=== PATIENT | female | born 2005 | race Caucasian/White ===

== ENCOUNTER 2025-03-03 08:44 | Outpatient (AMB) | payer MEDICAID, SELFPAY ==
[2025-03-03 08:56] VITALS: BP 112/78; PULSE 87; RESP 16; TEMP 36.2; O2SAT 98
--- NOTE | 2025-03-03 08:56 | OBCLNT_ITS ---
Vital Signs 03/03/25 08:56 Weight 76.714 kg Weight Measurement Method Standing Scale BP 112/78 Blood Pressure Source Automatic Cuff Blood Pressure Location Left Upper Arm Position Sitting Respiration 16 Pulse 87 Pulse Source Monitor Temp 97.2 F Temp Source Oral Pulse Oximetry (%) 98 Oxygen Delivery Method Room Air Allergies/Home Meds Allergies & Medications Allergies No Known Allergies Allergy (Unknown, Uncoded 03/03/25 08:57) Medication Reconciliation No Known Home Medications 03/03/25 [History Confirmed 03/03/25] Intake Visit Data Collection New Patient or Established: New Patient (never been to [facility]) Reason for Visit:: OB TRANSFER Seen by Clinical Staff ONLY (RN/MA): No Advertising Sales Executive Required: No Do You Feel Safe at Home: Yes Authorities Contacted: N/A PCP or OBGYN visit in last 3 months: Yes Hx Now: Yes Are you currently on any form of Control: No Last menstrual period: 07/07/24 Pain Present Currently: No Pain Scale Used: Armando-Covington/Numerical Pain scale:: 0 Smoking Status Smoking Status: Never smoker Questionnaires Covid-19 Vaccine Questionnaire Has patient been vacinated for Covid-19 Have you been vacinated for Covid-19: Yes PHQ-9 PHQ-2 Over the last 2 weeks, how often have you been bothered by any of the following problems? 1. Little interest or pleasure in doing things: not at all 2. Feeling down, depressed, or hopeless: not at all Total score: 0 PHQ-9 3. Trouble falling or staying asleep, or sleeping too much: Not at all 4. Feeling tired or having little energy: Not at all 5. Poor appetite or overeating: Not at all 6. Feeling bad about yourself - or that you are a failure or have let yourself or your family down: Not at all 7. Trouble concentrating on things, such as reading the newspaper or watching television: Not at all 8. Moving or speaking so slowly that other people could have noticed? - Or the opposite - being so fidgety or restless that you have been moving around a lot more than usual: not at all 9. Thoughts that you would be better off or of hurting yourself in some way: Not at all Total score: 0 If you checked off any problems, how difficult have these problems made it for you to do your work, take care of things at home, or get along with other people?: not difficult at all Source: Developed by Drs. Stephen Malloy, Lala Horn, Anthony Rowland and colleagues, with an educational rashad from [employer]. Depression screen completed yes Social History Living Situation History Marital Status: Single Lives With: Family Housing: House Tobacco History Smoking Status: Never smoker Domestic Abuse History Do You Feel Safe at Home: Yes History of Present Illness HPI Narrative 20-year-old 1 para 0 for OBI. Patient is a transfer from Dr. Garza with records. She has not had any problems with the . Her last. Was July 11 2024. This gave due date April 17, 2025. Patient had poor dates. The first ultrasound at [facility] was January 28, 2025. Patient was 25 weeks 4 days and this changes EDC to May 09, 2025. Patient reports good movement. Denies contractions. Denies bleeding. Denies leaking. Patient denies existence of any existing medical problems. She denies social habits. Denies surgeries. Patient is O+, antibody screen negative, RPR nonreactive, rubella immune, hepatitis B negative, hep C negative, HIV negative, GC and Chlamydia were negative. She had a normal 1 hour. Her NIPT and carrier screens were all negative. Her hemoglobin was 36. Patient January ultrasound showed the baby growing in the 40s 1st percentile OB Initial Visit OB Flowsheet OB Flowsheet Initial Weight: Not Recorded Date -?-?-?-?-?-?-?-?-?-?-?-?- EGA Weight BP Alb Glu CTX Pres Fundal ht FHR Mov Dilation Station Effacement Hx Notes Visit Note 03/03/25 -?-?-?-?-?-?-?-?-?-?-?-?- 30w 3d 76.714 kg 112/78 absent cephalic 33 145 active 20-year-old 1 para 0 for OBI. She has records. Transfer from Dr. Garza's office.'s patient has wrong dates. Her last period was July 11, 2024. Her estimated due date based on that April 17, 2025. Patient's first ultrasound January 28, 2025. Baby was 25 weeks 4 and this changed her EDC till 05/09/2025. Reports movement. Denies leaking. Denies bleeding. Denies contractions. Discussed labor precautions. Discussed kick count. Increase fluids. Continue prenatals. Reviewed labs and dates with patient. Return in a week for OB check and GBS Menstrual History Menstrual reliability: definite Flow: normal Menstrual regularity: regular Monthly: Yes Age at menarche: 13 On control pills at conception: No OB History : 1 Para: 0 Hx # Pregnancies: 0 Hx Total # of Abortions (Spontaneous & Elective): 0 # of Living Children: 0 Infection History & Risk Evaluation History of STDs: none HIV risk evaluation: low risk Hepatitis B risk evaluation: low risk Patient or partner has history of Genital Herpes: No Varicella/chicken pox status: immunized Genetic Screening & History Genetic Screening/Teratology Counseling - Includes patient, baby's father, or anyone in either family with: 1. Patient's age 35 years or older as of estimated date of delivery: No 2. Thalassemia (Kazakh, Amharic, Mediterranean, or Background); MCV less than 80: No 3. Neural Tube Defect (Meningomyelocele, Spina Bifida, or Anencephaly): No 4. Congenital Heart Defect: No 5. Down Syndrome: No 6. Ignacio-Sachs (Ashkenazi Gnosticist, Cajun, Hebrew South Korean): No 7. Royal Disease (Ashkenazi Gnosticist): No 8. Familial Dysautonomia (Ashkenazi Gnosticist): No 9. Sickle Cell Disease or Trait (): No 10. Hemophilia or other blood disorders: No 11. Muscular Dystrophy: No 12. Cystic Fibrosis: No 13. [place]'s Chorea: No 14. Mental Retardation/Autism: No 15. Other inherited genetic or chromosomal disorder: No 16. Maternal Metabolic Disorder (EG,TYPE 1 Diabetes, PKU): No 17. Patient or baby's father had a child with defects not listed above: No 18. Recurrent loss or a stillbirth: No 19. Medications (including supplements, vitamins, herbs or otc drugs)/illicit/recreational drugs/alcohol since last menstrual period: No 20. Any other: No Infection History 1. Live with someone with TB or exposed to TB: No 2. Rash or viral illness since last menstrual period: No 3. Hepatitis B,C: No Other (see comments) Source: [employer] Review of Systems Review of Systems Systems Reviewed: All systems reviewed, normal except as documented Exam General Limitations: no limitations General Appearance: alert, in no apparent distress, comfortable, cooperative, healthy appearing, well developed and well groomed Head Head exam: atraumatic, normocephalic and normal inspection Chest Chest inspection: Present normal inspection and symmetric chest wall rise Resp Respiratory exam: Present normal lung sounds bilaterally Card Cardiovascular exam: Present regular rate, normal rhythm and normal heart sounds Abdominal Abdominal exam: Present soft and normal bowel sounds Extremities Extremities exam: Present normal inspection and full ROM Psych Psychiatric exam: Present normal affect and normal mood Office Procedures OB Clinic LOC & Office Proc's Nursing/Assessment Patient Status: Initial/New Patient OB Clinic Nursing Assessment: Medication Reconciliation, Update PMH in EMR and Vital Signs OB Clinic Coordination of Care: Education Complex Pt/Fam, Consent,records obtained, informed consent, Lab and Imaging orders, Results/Orders obtained and Staff clarify orders Special Needs: Heart tones New Patient Charge New Patient Point Assignment: 1114 New Patient 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 Kick counts twice a day. Increase fluids. Continue prenatals. Return in 2 weeks GBS Additional Plan Follow Up: 2 Weeks (obc)
== END 2025-03-03 09:31 | disposition home or self-care (01) ==
LOC: HODSOBC 08:44
PROVIDERS: Supervising Provider Advanced Practice Midwife; Visit Provider Advanced Practice Midwife
DX: Z34.03 Encounter for supervision of normal first pregnancy, third trimester (principal); Z3A.30 30 weeks gestation of pregnancy
CPT/HCPCS: 99203; 99213; G0463

== ENCOUNTER 2025-03-09 13:32 | Outpatient (AMB) | payer MEDICAID, SELFPAY ==
[2025-03-09 14:02] VITALS: BP 107/68; PULSE 91; RESP 16; TEMP 36.2; O2SAT 98
--- NOTE | 2025-03-09 14:02 | AMB.OBVISIT ---
Vital Signs 03/09/25 14:02 Weight 76.43 kg Weight Measurement Method Standing Scale BP 107/68 Blood Pressure Source Automatic Cuff Blood Pressure Location Left Upper Arm Position Sitting Respiration 16 Pulse 91 Pulse Source Monitor Temp 97.2 F Temp Source Oral Pulse Oximetry (%) 98 Oxygen Delivery Method Room Air Allergies/Home Meds Allergies & Medications Allergies No Known Allergies Allergy (Unknown, Uncoded 03/09/25 14:03) Medication Reconciliation No Known Home Medications 03/03/25 [History Confirmed 03/09/25] Intake Visit Data Collection New Patient or Established: Established Patient (seen at [facility] within 3 years) Reason for Visit:: OBC Seen by Clinical Staff ONLY (RN/MA): No Air Conditioning Technician Required: No Do You Feel Safe at Home: Yes Authorities Contacted: N/A PCP or OBGYN visit in last 3 months: Yes Date of Last PCP or OBGYN visit: 03/03/25 Hx Now: Yes Are you currently on any form of Control: No Pain Present Currently: No Pain Scale Used: Armando-Covington/Numerical Pain scale:: 0 Smoking Status Smoking Status: Never smoker Questionnaires Covid-19 Vaccine Questionnaire Has patient been vacinated for Covid-19 Have you been vacinated for Covid-19: No PHQ-9 PHQ-2 Over the last 2 weeks, how often have you been bothered by any of the following problems? 1. Little interest or pleasure in doing things: not at all 2. Feeling down, depressed, or hopeless: not at all Total score: 0 PHQ-9 3. Trouble falling or staying asleep, or sleeping too much: Not at all 4. Feeling tired or having little energy: Not at all 5. Poor appetite or overeating: Not at all 6. Feeling bad about yourself - or that you are a failure or have let yourself or your family down: Not at all 7. Trouble concentrating on things, such as reading the newspaper or watching television: Not at all 8. Moving or speaking so slowly that other people could have noticed? - Or the opposite - being so fidgety or restless that you have been moving around a lot more than usual: not at all 9. Thoughts that you would be better off or of hurting yourself in some way: Not at all Total score: 0 If you checked off any problems, how difficult have these problems made it for you to do your work, take care of things at home, or get along with other people?: not difficult at all Source: Developed by Drs. Stephen Malloy, Lala Horn, Anthony Rowland and colleagues, with an educational rashad from [employer]. Depression screen completed yes Social History Living Situation History Lives With: Family Housing: House Tobacco History Smoking Status: Never smoker Second Hand Smoke Exposure: No Alcohol History Alcohol Intake: Never Domestic Abuse History Do You Feel Safe at Home: Yes Care OB Visit Log OB Flowsheet Initial Weight: Not Recorded Date <del>?</del> EGA Weight BP Alb Glu CTX Pres Fundal ht FHR Mov Dilation Station Effacement Hx Notes Visit Note 03/03/25 <del>?</del> 30w 3d 76.714 kg 112/78 absent cephalic 33 145 active 20-year-old 1 para 0 for OBI. She has records. Transfer from Dr. Garza's office.'s patient has wrong dates. Her last period was July 11, 2024. Her estimated due date based on that April 17, 2025. Patient's first ultrasound January 28, 2025. Baby was 25 weeks 4 and this changed her EDC till 05/09/2025. Reports movement. Denies leaking. Denies bleeding. Denies contractions. Discussed labor precautions. Discussed kick count. Increase fluids. Continue prenatals. Reviewed labs and dates with patient. Return in a week for OB check and GBS 03/09/25 <del>?</del> 31w 2d 76.43 kg 107/68 absent cephalic 32 145 active Reports good movement. Occasional contractions and pressure. Denies leaking, denies bleeding. Patient denies any OB problem Kick count twice a day. I discussed with patient. I discussed danger signs and symptoms and ER precautions. Increase fluids. Continue prenatals. Return in 2 weeks for recheck DIOR Calculator Estimated Delivery Date Method Current WG Current Estimate 05/09/25 Ultrasound #1 31w 2d Other Estimates 04/17/25 LMP (Uncertain) 34w 3d Notes Visit Date: 03/03/25 Last Updated by: Mitzy Barahona CNM 20 yo . EDC based on first sono 01/28/25: IUP: 25w4. CEDC: 05/09/25. O+,abs-, RPR:NR, HIV-,HC-,HBSAG-,GC/CT-, NIPT and carrier screen-, [place]-, 1 hr gtt: wnl Office Procedures OB Clinic LOC & Office Proc's Nursing/Assessment Patient Status: Established Patient OB Clinic Nursing Assessment: Medication Reconciliation, Update PMH in EMR and Vital Signs OB Clinic Coordination of Care: Education Complex Pt/Fam, Consent,records obtained, informed consent, Lab and Imaging orders and Staff clarify orders Special Needs: Heart tones Established Patient Charge Established Patient Point Assignment: 110 Established Patient Point Charge: EP Level 3 (80-115) Assessment & Plan Diagnosis / Problem List (1) Encounter for supervision of other normal , second trimester: Status: Acute Plan Discussed return precautions. Kick count twice a day. Increase fluids. Discussed danger signs and symptoms and ER precautions. Return in 2 weeks OB check Additional Plan Follow Up: 2 Weeks (obc)
== END 2025-03-09 14:11 | disposition home or self-care (01) ==
PROVIDERS: Supervising Provider Advanced Practice Midwife; Visit Provider Advanced Practice Midwife
DX: Z34.03 Encounter for supervision of normal first pregnancy, third trimester (principal); Z3A.31 31 weeks gestation of pregnancy
CPT/HCPCS: 99213; G0463

== ENCOUNTER 2025-03-23 15:00 | Outpatient (AMB) | payer MEDICAID, SELFPAY ==
[2025-03-23 16:12] VITALS: BP 110/72; PULSE 91; RESP 18; TEMP 36.6; O2SAT 98
--- NOTE | 2025-03-23 16:12 | OBCLNT_ITS ---
Vital Signs 03/23/25 16:12 Height 5.1 m Height Method Measured Weight 78.642 kg Weight Measurement Method Standing Scale BMI 3.0 BP 110/72 Blood Pressure Source Automatic Cuff Blood Pressure Location Left Upper Arm Position Sitting Respiration 18 Pulse 91 Pulse Source Monitor Temp 97.8 F Temp Source Oral Pulse Oximetry (%) 98 Oxygen Delivery Method Room Air Allergies/Home Meds Allergies & Medications Allergies No Known Allergies Allergy (Unknown, Uncoded 03/23/25 16:13) Medication Reconciliation No Known Home Medications 03/03/25 [History Confirmed 03/23/25] Intake Visit Data Collection New Patient or Established: Established Patient (seen at [facility] within 3 years) Reason for Visit:: CARE Seen by Clinical Staff ONLY (RN/MA): No Council On Aging Director Required: No Do You Feel Safe at Home: Yes Authorities Contacted: N/A PCP or OBGYN visit in last 3 months: Yes Hx Now: Yes Are you currently on any form of Control: No Pain Present Currently: No Pain Scale Used: Armando-Covington/Numerical Pain scale:: 0 Smoking Status Smoking Status: Never smoker Questionnaires Covid-19 Vaccine Questionnaire Has patient been vacinated for Covid-19 Have you been vacinated for Covid-19: Yes PHQ-9 PHQ-2 Over the last 2 weeks, how often have you been bothered by any of the following problems? 1. Little interest or pleasure in doing things: not at all 2. Feeling down, depressed, or hopeless: not at all Total score: 0 PHQ-9 3. Trouble falling or staying asleep, or sleeping too much: Not at all 4. Feeling tired or having little energy: Not at all 5. Poor appetite or overeating: Not at all 6. Feeling bad about yourself - or that you are a failure or have let yourself or your family down: Not at all 7. Trouble concentrating on things, such as reading the newspaper or watching television: Not at all 8. Moving or speaking so slowly that other people could have noticed? - Or the opposite - being so fidgety or restless that you have been moving around a lot more than usual: not at all 9. Thoughts that you would be better off or of hurting yourself in some way: Not at all Total score: 0 Source: Developed by Drs. Stephen Malloy, Lala Horn, Anthony Rowland and colleagues, with an educational rashad from [employer]. Depression screen completed yes Social History Living Situation History Lives With: Family Housing: House Tobacco History Smoking Status: Never smoker Second Hand Smoke Exposure: No Alcohol History Alcohol Intake: Never Domestic Abuse History Do You Feel Safe at Home: Yes Care OB Visit Log OB Flowsheet Initial Weight: Not Recorded Date -?-?-?-?-?-?-?-?-?-?-?-?- EGA Weight BP Alb Glu CTX Pres Fundal ht FHR Mov Dilation Station Effacement Hx Notes Visit Note 03/03/25 -?-?-?-?-?-?-?-?-?-?-?-?- 30w 3d 76.714 kg 112/78 absent cephalic 33 145 active 20-year-old 1 para 0 for OBI. She has records. Transfer from Dr. Garza's office.'s patient has wrong dates. Her last period was July 11, 2024. Her estimated due date based on that April 17, 2025. Patient's first ultrasound January 28, 2025. Baby was 25 weeks 4 and this changed her EDC till 05/09/2025. Reports movement. Denies leaking. Denies bleeding. Denies contractions. Discussed labor precautions. Discussed kick count. Increase fluids. Continue prenatals. Reviewed labs and dates with patient. Return in a week for OB check and GBS 03/09/25 -?-?-?-?-?-?-?-?-?-?-?-?- 31w 2d 76.43 kg 107/68 absent cephalic 32 145 active Reports good movement. Occasional contractions and pressure. Denies leaking, denies bleeding. Patient denies any OB problem Kick count twice a day. I discussed with patient. I discussed danger signs and symptoms and ER precautions. Increase fluids. Continue prenatals. Return in 2 weeks for recheck 03/23/25 -?-?-?-?-?-?-?-?-?-?-?-?- 33w 2d 78.642 kg 110/72 absent cephalic 33 135 active Fetus active per patient. Denies labor complaints. Denies leaking, bleeding, contractions. Reviewed kick co unt twice a day. Discussed labor precautions. Encourage patient to drink more fluids. Return in 2 weeks OB check and GBS DIOR Calculator Estimated Delivery Date Method Current WG Current Estimate 05/09/25 Ultrasound #1 33w 2d Other Estimates 04/17/25 LMP (Uncertain) 36w 3d Notes Visit Date: 03/03/25 Last Updated by: Mitzy Barahona CNM 20 yo . EDC based on first sono 01/28/25: IUP: 25w4. CEDC: 05/09/25. O+,abs-, RPR:NR, HIV-,HC-,HBSAG-,GC/CT-, NIPT and carrier screen-, [place]-, 1 hr gtt: wnl Office Procedures OB Clinic LOC & Office Proc's Nursing/Assessment Patient Status: Established Patient OB Clinic Nursing Assessment: Medication Reconciliation, Update PMH in EMR and Vital Signs OB Clinic Coordination of Care: Complex Care and Chronic Disease 1-5, Consent,records obtained, informed consent, Education Simp Pt/Fam, 1 Ins Authorization, Lab and Imaging orders, Results/Orders obtained and Staff clarify orders Special Needs: Heart tones Established Patient Charge Established Patient Point Assignment: 150 Established Patient Point Charge: EP Level 4 (120-155) Assessment & Plan Diagnosis / Problem List (1) Encounter for care in third trimester of first : Status: Acute Plan Discussed labor precautions. Kick count twice a day and I reviewed that with patient. Discussed danger signs symptoms and ER precautions. Return in 2 weeks for OB check and GBS Additional Plan Follow Up: 2 Weeks (OBc)
== END 2025-03-23 16:34 | disposition home or self-care (01) ==
LOC: HODSOBC 15:00
PROVIDERS: Supervising Provider Advanced Practice Midwife; Visit Provider Advanced Practice Midwife
DX: Z34.03 Encounter for supervision of normal first pregnancy, third trimester (principal); Z3A.33 33 weeks gestation of pregnancy
CPT/HCPCS: 99214; G0463

== ENCOUNTER 2025-04-11 14:13 | Outpatient (AMB) | payer MEDICAID, SELFPAY ==
[2025-04-11 14:38] VITALS: BP 105/65; PULSE 87; RESP 16; TEMP 36.3; O2SAT 97; BMI 32.3
--- NOTE | 2025-04-11 14:38 | AMB.OBVISIT ---
Vital Signs 04/11/25 14:38 Height 1.57 m Height Method Stated Weight 80.059 kg Weight Measurement Method Standing Scale BMI 32.3 BP 105/65 Blood Pressure Source Automatic Cuff Blood Pressure Location Left Upper Arm Position Sitting Respiration 16 Pulse 87 Pulse Source Monitor Temp 97.3 F Temp Source Oral Pulse Oximetry (%) 97 Oxygen Delivery Method Room Air Allergies/Home Meds Allergies & Medications Allergies No Known Allergies Allergy (Unknown, Uncoded 04/11/25 14:40) Medication Reconciliation No Known Home Medications 03/03/25 [History Confirmed 04/11/25] Intake Visit Data Collection New Patient or Established: Established Patient (seen at [facility] within 3 years) Reason for Visit:: CARE Seen by Clinical Staff ONLY (RN/MA): No Expanded Function Dental Assistant Required: No Do You Feel Safe at Home: Yes Authorities Contacted: N/A PCP or OBGYN visit in last 3 months: Yes Hx Now: Yes Are you currently on any form of Control: No Pain Present Currently: No Pain Scale Used: Armando-[place]/Numerical Pain scale:: 0 Smoking Status Smoking Status: Never smoker Questionnaires Covid-19 Vaccine Questionnaire Has patient been vacinated for Covid-19 Have you been vacinated for Covid-19: No PHQ-9 PHQ-2 Over the last 2 weeks, how often have you been bothered by any of the following problems? 1. Little interest or pleasure in doing things: not at all 2. Feeling down, depressed, or hopeless: not at all Total score: 0 PHQ-9 3. Trouble falling or staying asleep, or sleeping too much: Not at all 4. Feeling tired or having little energy: Not at all 5. Poor appetite or overeating: Not at all 6. Feeling bad about yourself - or that you are a failure or have let yourself or your family down: Not at all 7. Trouble concentrating on things, such as reading the newspaper or watching television: Not at all 8. Moving or speaking so slowly that other people could have noticed? - Or the opposite - being so fidgety or restless that you have been moving around a lot more than usual: not at all 9. Thoughts that you would be better off or of hurting yourself in some way: Not at all Total score: 0 Source: Developed by Drs. Stephen Malloy, Lala Horn, Anthony Rowland and colleagues, with an educational rashad from [email or web address]. Depression screen completed yes Social History Living Situation History Lives With: Family Housing: House Tobacco History Smoking Status: Never smoker Second Hand Smoke Exposure: No Alcohol History Alcohol Intake: Never Domestic Abuse History Do You Feel Safe at Home: Yes Care OB Visit Log OB Flowsheet Initial Weight: Not Recorded Date <del>?</del> EGA Weight BP Alb Glu CTX Pres Fundal ht FHR Mov Dilation Station Effacement Hx Notes Visit Note 03/03/25 <del>?</del> 30w 3d 76.714 kg 112/78 absent cephalic 33 145 active 20-year-old 1 para 0 for OBI. She has records. Transfer from Dr. Garza's office.'s patient has wrong dates. Her last period was July 11, 2024. Her estimated due date based on that April 17, 2025. Patient's first ultrasound January 28, 2025. Baby was 25 weeks 4 and this changed her EDC till 05/09/2025. Reports movement. Denies leaking. Denies bleeding. Denies contractions. Discussed labor precautions. Discussed kick count. Increase fluids. Continue prenatals. Reviewed labs and dates with patient. Return in a week for OB check and GBS 03/09/25 <del>?</del> 31w 2d 76.43 kg 107/68 absent cephalic 32 145 active Reports good movement. Occasional contractions and pressure. Denies leaking, denies bleeding. Patient denies any OB problem Kick count twice a day. I discussed with patient. I discussed danger signs and symptoms and ER precautions. Increase fluids. Continue prenatals. Return in 2 weeks for recheck 03/23/25 <del>?</del> 33w 2d 78.642 kg 110/72 absent cephalic 33 135 active Fetus active per patient. Denies labor complaints. Denies leaking, bleeding, contractions. Reviewed kick count twice a day. Discussed labor precautions. Encourage patient to drink more fluids. Return in 2 weeks OB check and GBS 04/11/25 <del>?</del> 36w 0d 80.059 kg 105/65 absent cephalic 36 132 active Fetus active. Denies leaking, bleeding, contractions. Feels pressure. No OB complaints GBS today. Reviewed kick count with patient to be done twice a day. Discussed labor precautions, ER precautions and danger signs symptoms return a week OB check DIOR Calculator Estimated Delivery Date Method Current WG Current Estimate 05/09/25 Ultrasound #1 36w 0d Other Estimates 04/17/25 LMP (Uncertain) 39w 1d Notes Visit Date: 03/03/25 Last Updated by: Mitzy Barahona, MICHELLE 20 yo . EDC based on first sono 01/28/25: IUP: 25w4. CEDC: 05/09/25. O+,abs-, RPR:NR, HIV-,HC-,HBSAG-,GC/CT-, NIPT and carrier screen-, [place]-, 1 hr gtt: wnl Office Procedures OBC Clinic LOC & Office Proc's Nursing/Assessment Patient Status: Established Patient OB Clinic Nursing Assessment: Medication Reconciliation, Update PMH in EMR and Vital Signs OB Clinic Coordination of Care: Complex Care and Chronic Disease 1-5, Consent,records obtained, informed consent, Education Simp Pt/Fam, Lab and Imaging orders, Results/Orders obtained and Staff clarify orders Special Needs: Heart tones Miscellaneous Interventions: Culture Specimen Collection and Pelvic Culture Established Patient Charge Established Patient Point Assignment: 160 Established Patient Point Charge: EP Level 5 (160-above) Assessment & Plan Diagnosis / Problem List (1) Encounter for supervision of high risk in third trimester, antepartum: Status: Acute Plan GBS today. Discussed labor precautions. Discussed kick count twice a day. Increase fluids. Discussed danger signs and symptoms and ER precautions. Return a week OB check Additional Plan Follow Up: 1 Week (obc)
== END 2025-04-11 15:06 | disposition home or self-care (01) ==
LOC: HODSOBC 14:13
PROVIDERS: Supervising Provider Advanced Practice Midwife; Visit Provider Advanced Practice Midwife
DX: O09.93 Supervision of high risk pregnancy, unspecified, third trimester (principal); Z3A.36 36 weeks gestation of pregnancy; Z36.85 Encounter for antenatal screening for Streptococcus B
CPT/HCPCS: 99215; G0463

== ENCOUNTER 2025-04-20 13:57 | Outpatient (AMB) | payer MEDICAID, SELFPAY ==
[2025-04-20 14:04] VITALS: BP 103/68; PULSE 79; RESP 17; TEMP 36.3; O2SAT 97; BMI 33.0
--- NOTE | 2025-04-20 14:04 | OBCLNT_ITS ---
Vital Signs 04/20/25 14:04 Height 1.57 m Height Method Stated Weight 81.42 kg Weight Measurement Method Standing Scale BMI 33.0 BP 103/68 Blood Pressure Source Automatic Cuff Blood Pressure Location Right Upper Arm Position Sitting Respiration 17 Pulse 79 Pulse Source Monitor Temp 97.3 F Temp Source Temporal Artery Scan Pulse Oximetry (%) 97 Oxygen Delivery Method Room Air Allergies/Home Meds Allergies & Medications Allergies No Known Allergies Allergy (Unknown, Uncoded 04/20/25 14:07) Medication Reconciliation No Known Home Medications 03/03/25 [History Confirmed 04/20/25] Intake Visit Data Collection New Patient or Established: Established Patient (seen at [facility] within 3 years) Reason for Visit:: OBC Seen by Clinical Staff ONLY (RN/MA): No Grain Unloader Required: No Do You Feel Safe at Home: Yes Authorities Contacted: N/A PCP or OBGYN visit in last 3 months: Yes Date of Last PCP or OBGYN visit: 04/11/25 Hx Now: Yes Are you currently on any form of Control: No Pain Present Currently: No Smoking Status Smoking Status: Never smoker Questionnaires Covid-19 Vaccine Questionnaire Has patient been vacinated for Covid-19 Have you been vacinated for Covid-19: No PHQ-9 PHQ-2 Over the last 2 weeks, how often have you been bothered by any of the following problems? 1. Little interest or pleasure in doing things: not at all 2. Feeling down, depressed, or hopeless: not at all Total score: 0 PHQ-9 3. Trouble falling or staying asleep, or sleeping too much: Not at all 4. Feeling tired or having little energy: Not at all 5. Poor appetite or overeating: Not at all 6. Feeling bad about yourself - or that you are a failure or have let yourself or your family down: Not at all 7. Trouble concentrating on things, such as reading the newspaper or watching television: Not at all 8. Moving or speaking so slowly that other people could have noticed? - Or the opposite - being so fidgety or restless that you have been moving around a lot more than usual: not at all 9. Thoughts that you would be better off or of hurting yourself in some way: Not at all Total score: 0 If you checked off any problems, how difficult have these problems made it for you to do your work, take care of things at home, or get along with other people?: not difficult at all Source: Developed by Drs. Stephen Malloy, Lala Horn, Anthony Rowland and colleagues, with an educational rashad from [employer] Depression screen completed yes Social History Living Situation History Marital Status: Lives With: Family Housing: House Tobacco History Smoking Status: Never smoker Second Hand Smoke Exposure: No Alcohol History Alcohol Intake: Never Domestic Abuse History Do You Feel Safe at Home: Yes Care OB Visit Log OB Flowsheet Initial Weight: Not Recorded Date -?-?-?-?-?-?-?-?-?-?--?-?- EGA Weight BP Alb Glu CTX Pres Fundal ht FHR Mov Dilation Station Effacement Hx Notes Visit Note 03/03/25 -?-?-?-?-?-?-?-?-?-?-?-?- 30w 3d 76.714 kg 112/78 absent cephalic 33 145 active 20-year-old 1 para 0 for OBI. She has records. Transfer from Dr. Garza's office.'s patient has wrong dates. Her last period was July 11, 2024. Her estimated due date based on that April 17, 2025. Patient's first ultrasound January 28, 2025. Baby was 25 weeks 4 and this changed her EDC till 05/09/2025. Reports movement. Denies leaking. Denies bleeding. Denies contractions. Discussed labor precautions. Discussed kick count. Increase fluids. Continue prenatals. Reviewed labs and dates with patient. Return in a week for OB check and GBS 03/09/25 -?-?-?-?-?-?-?-?-?-?-?-?- 31w 2d 76.43 kg 107/68 absent cephalic 32 145 active Reports good movement. Occasional contractions and pressure. Denies leaking, denies bleeding. Patient denies any OB problem Kick count twice a day. I discussed with patient. I discussed danger signs and symptoms and ER precautions. Increase fluids. Continue prenatals. Return in 2 weeks for recheck 03/23/25 -?-?-?-?-?-?-?-?-?-?-?-?- 33w 2d 78.642 kg 110/72 absent cephalic 33 135 active Fetus active per patient. Denies labor complaints. Denies leaking, bleeding, contractions. Reviewed kick co unt twice a day. Discussed labor precautions. Encourage patient to drink more fluids. Return in 2 weeks OB check and GBS 04/11/25 -?-?-?-?-?-?-?-?-?-?-?-?- 36w 0d 80.059 kg 105/65 absent cephalic 36 132 active Fetus active. Denies leaking, bleeding, contractions. Feels pressure. No OB complaints GBS today. Reviewed kick count with patient to be done twice a day. Discussed labor precautions, ER precautions and danger signs symptoms return a week OB check 04/20/25 -?-?-?-?-?-?-?-?-?-?-?-?- 37w 2d 81.42 kg 103/68 absent cephalic 37 135 active Reports good movement. Denies leaking, bleeding or contractions Discussed GBS results. Kick count twice a day. Discussed labor precautions and ER precautions. Patient to walk in drink red raspberry tea and other measures to help cause contractions. And return [facility] DIOR Calculator Estimated Delivery Date Method Current WG Current Estimate 05/09/25 Ultrasound #1 37w 2d Other Estimates 04/17/25 LMP (Uncertain) 40w 3d Notes Visit Date: 04/20/25 Last Updated by: Mitzy Barahona CNM 04/19: GBS- Visit Date: 03/03/25 Last Updated by: Mitzy Barahona CNM 20 yo . EDC based on first sono 01/28/25: IUP: 25w4. CEDC: 05/09/25. O+,abs-, RPR:NR, HIV-,HC-,HBSAG-,GC/CT-, NIPT and carrier screen-, [place]-, 1 hr gtt: wnl Office Procedures OBC Clinic LOC & Office Proc's Nursing/Assessment Patient Status: Established Patient OB Clinic Nursing Assessment: Medication Reconciliation, Update PMH in EMR and Vital Signs OB Clinic Coordination of Care: Complex Care and Chronic Disease 1-5, Education Complex Pt/Fam, Consent,records obtained, informed consent and Staff clarify orders Special Needs: Heart tones Established Patient Charge Established Patient Point Assignment: 120 Established Patient Point Charge: EP Level 4 (120-155) Assessment & Plan Diagnosis / Problem List (1) Encounter for supervision of high risk in third trimester, antepartum: Status: Acute Plan Discussed kick count twice a day. Discussed labor precautions and ER parameters. Increase fluids. Continue vitamins. Discussed danger signs symptoms. Return in a week OB check Additional Plan Follow Up: 1 Week (obc)
== END 2025-04-20 14:17 | disposition home or self-care (01) ==
LOC: HODSOBC 13:57
PROVIDERS: Supervising Provider Advanced Practice Midwife; Visit Provider Advanced Practice Midwife
DX: O09.93 Supervision of high risk pregnancy, unspecified, third trimester (principal); Z3A.37 37 weeks gestation of pregnancy
CPT/HCPCS: 99214; G0463

== ENCOUNTER 2025-05-02 13:33 | Outpatient (AMB) | payer MEDICAID, SELFPAY ==
--- NOTE | 2025-05-02 14:00 | OBCLNT_ITS ---
Vital Signs 05/02/25 14:01 Height 1.57 m Height Method Stated Weight 82.781 kg Weight Measurement Method Standing Scale BMI 33.5 BP 97/58 L Blood Pressure Source Automatic Cuff Blood Pressure Location Right Upper Arm Position Sitting Respiration 18 Pulse 82 Pulse Source Monitor Temp 97.5 F Temp Source Temporal Artery Scan Pulse Oximetry (%) 97 Oxygen Delivery Method Room Air Allergies/Home Meds Allergies & Medications Allergies No Known Allergies Allergy (Unknown, Uncoded 05/02/25 14:02) Medication Reconciliation No Known Home Medications 03/03/25 [History Confirmed 05/02/25] Intake Visit Data Collection New Patient or Established: Established Patient (seen at [facility] within 3 years) Reason for Visit:: OBC Seen by Clinical Staff ONLY (RN/MA): No Truck Car And Bus Cleaner Required: No Do You Feel Safe at Home: Yes Authorities Contacted: N/A PCP or OBGYN visit in last 3 months: Yes Date of Last PCP or OBGYN visit: 04/20/25 Hx Now: Yes Are you currently on any form of Control: No Pain Present Currently: No Pain Scale Used: Armando-[place]/Numerical Pain scale:: 0 Smoking Status Smoking Status: Never smoker Immunizations Flu Vaccine in the Last 12 Months: No Flu Vaccine Exclusion Criteria: No Exclusion Criteria Questionnaires Covid-19 Vaccine Questionnaire Has patient been vacinated for Covid-19 Have you been vacinated for Covid-19: No PHQ-9 PHQ-2 Over the last 2 weeks, how often have you been bothered by any of the following problems? 1. Little interest or pleasure in doing things: not at all 2. Feeling down, depressed, or hopeless: not at all Total score: 0 PHQ-9 3. Trouble falling or staying asleep, or sleeping too much: Not at all 4. Feeling tired or having little energy: Not at all 5. Poor appetite or overeating: Not at all 6. Feeling bad about yourself - or that you are a failure or have let yourself or your family down: Not at all 7. Trouble concentrating on things, such as reading the newspaper or watching television: Not at all 8. Moving or speaking so slowly that other people could have noticed? - Or the opposite - being so fidgety or restless that you have been moving around a lot more than usual: not at all 9. Thoughts that you would be better off or of hurting yourself in some way: Not at all Total score: 0 If you checked off any problems, how difficult have these problems made it for you to do your work, take care of things at home, or get along with other people?: not difficult at all Source: Developed by Drs. Stephen Malloy, Lala Horn, Anthony Rowland and colleagues, with an educational rashad from [employer]. Depression screen completed yes Social History Living Situation History Marital Status: Lives With: Family Housing: House Tobacco History Smoking Status: Never smoker Second Hand Smoke Exposure: No Alcohol History Alcohol Intake: Never Domestic Abuse History Do You Feel Safe at Home: Yes Care OB Visit Log OB Flowsheet Initial Weight: Not Recorded Date -?-?-?-?-?-?-?-?-?-?-?-?- EGA Weight BP Alb Glu CTX Pres Fundal ht FHR Mov Dilation Station Effacement Hx Notes Visit Note 03/03/25 -?-?-?-?-?-?-?-?-?-?-?-?- 30w 3d 76.714 kg 112/78 absent cephalic 33 145 active 20-year-old 1 para 0 for OBI. She has records. Transfer from Dr. Garza's office.'s patient has wrong dates. Her last period was July 11, 2024. Her estimated due date based on that April 17, 2025. Patient's first ultrasound January 28, 2025. Baby was 25 weeks 4 and this changed her EDC till 05/09/2025. Reports movement. Denies leaking. Denies bleeding. Denies contractions. Discussed labor precautions. Discussed kick count. Increase fluids. Continue prenatals. Reviewed labs and dates with patient. Return in a week for OB check and GBS 03/09/25 -?-?-?-?-?-?-?-?-?-?-?-?- 31w 2d 76.43 kg 107/68 absent cephalic 32 145 active Reports good movement. Occasional contractions and pressure. Denies leaking, denies bleeding. Patient denies any OB problem Kick count twice a day. I discussed with patient. I discussed danger signs and symptoms and ER precautions. Increase fluids. Continue prenatals. Return in 2 weeks for recheck 03/23/25 -?-?-?-?-?-?-?-?-?-?-?--?- 33w 2d 78.642 kg 110/72 absent cephalic 33 135 active Fetus active per patient. Denies labor complaints. Denies leaking, bleeding, cont ractions. Reviewed kick co unt twice a day. Discussed labor precautions. Encourage patient to drink more fluids. Return in 2 weeks OB check and GBS 04/11/25 -?-?-?-?-?-?-?-?-?-?-?-?- 36w 0d 80.059 kg 105/65 absent cephalic 36 132 active Fetus active. Denies leaking, bleeding, contractions. Feels pressure. No OB complaints GBS today. Reviewed kick count with patient to be done twice a day. Discussed labor precautions, ER precautions and danger signs symptoms return a week OB check 04/20/25 -?-?-?-?-?-?-?-?-?--?-?-?- 37w 2d 81.42 kg 103/68 absent cephalic 37 135 active Reports good movement. Denies leaking, bleeding or contractions Discussed GBS results. Kick count twice a day. Discussed labor precautions and ER precautions. Patient to walk in drink red raspberry tea and other measures to help cause contractions. And return [facility] 05/02/25 -?-?-?-?-?-?-?-?-?-?-?-?- 39w 0d 82.781 kg 97/58 absent cephalic 39 135 active 1 -4 25 Reports good movement. SVE, L/TH/high. Occasional contraction and pressure. Denies leaking or Discussed labor precautions. Kick count twice a day. I discussed comfort measures for early labor and I encouraged patient to walk and move more and return in a week OB check. We also discussed diet decreasing sugary foods Discussed labor precautions. Kick count twice a day. I discussed comfort measures for early labor and I encouraged patient to walk and move more and return in a week OB check. We also discussed diet decreasing sugary foods. IOL 05/12/25 DIOR Calculator Estimated Delivery Date Method Current WG Current Estimate 05/09/25 Ultrasound #1 39w 0d Other Estimates 04/17/25 LMP (Uncertain) 42w 1d Notes Visit Date: 04/20/25 Last Updated by: Mitzy Barahona CNM 04/19: GBS- Visit Date: 03/03/25 Last Updated by: Mitzy Barahona CNM 20 yo . EDC based on first sono 01/28/25: IUP: 25w4. CEDC: 05/09/25. O+,abs-, RPR:NR, HIV-,HC-,HBSAG-,GC/CT-, NIPT and carrier screen-, [place]-, 1 hr gtt: wnl Office Procedures OBC Clinic LOC & Office Proc's Nursing/Assessment Patient Status: Established Patient OB Clinic Nursing Assessment: Medication Reconciliation, Update PMH in EMR and Vital Signs OB Clinic Coordination of Care: Complex Care and Chronic Disease 1-5, Education Complex Pt/Fam, Consent,records obtained, informed consent, Lab and Imaging orders, Results/Orders obtained and Staff clarify orders Special Needs: Heart tones Miscellaneous Interventions: Pelvic no cultures Established Patient Charge Established Patient Point Assignment: 150 Established Patient Point Charge: EP Level 4 (120-155) Assessment & Plan Diagnosis / Problem List (1) Encounter for supervision of high risk in third trimester, antepartum: Status: Acute Plan Discussed labor precautions. Discussed signs symptoms ER precautions discussed kick count twice a day. Patient encouraged to walk 40 minutes a day. We discussed self-help measures to get contractions going. Return in a week Additional Plan Follow Up: 1 Week (obc)
[2025-05-02 14:01] VITALS: BP 97/58; PULSE 82; RESP 18; TEMP 36.4; O2SAT 97; BMI 33.5
== END 2025-05-02 15:02 | disposition home or self-care (01) ==
PROVIDERS: Supervising Provider Advanced Practice Midwife; Visit Provider Advanced Practice Midwife
DX: O09.893 Supervision of other high risk pregnancies, third trimester (principal); Z3A.39 39 weeks gestation of pregnancy
CPT/HCPCS: 99214; G0463

== ENCOUNTER 2025-05-11 13:11 | Outpatient (AMB) | payer MEDICAID, SELFPAY ==
--- NOTE | 2025-05-11 13:13 | OBCLNT_ITS ---
Vital Signs 05/11/25 13:14 Height 1.57 m Height Method Stated Weight 81.873 kg Weight Measurement Method Standing Scale BMI 33.2 BP 115/78 Blood Pressure Source Automatic Cuff Blood Pressure Location Left Upper Arm Position Sitting Respiration 16 Pulse 76 Pulse Source Monitor Temp 97.8 F Temp Source Oral Pulse Oximetry (%) 96 Oxygen Delivery Method Room Air Allergies/Home Meds Allergies & Medications Allergies No Known Allergies Allergy (Unknown, Uncoded 05/11/25 13:19) Medication Reconciliation No Known Home Medications 03/03/25 [History Confirmed 05/11/25] Intake Visit Data Collection New Patient or Established: Established Patient (seen at [facility] within 3 years) Reason for Visit:: CARE Seen by Clinical Staff ONLY (RN/MA): No Radial Drill Press Set Up Operator Required: No Do You Feel Safe at Home: Yes Authorities Contacted: N/A PCP or OBGYN visit in last 3 months: Yes Hx Now: Yes Are you currently on any form of Control: No Pain Present Currently: No Pain Scale Used: Armando-[place]ovington/Numerical Pain scale:: 0 Smoking Status Smoking Status: Never smoker Immunizations Flu Vaccine in the Last 12 Months: Yes Flu Vaccine Exclusion Criteria: Already Received Questionnaires Covid-19 Vaccine Questionnaire Has patient been vacinated for Covid-19 Have you been vacinated for Covid-19: Yes PHQ-9 PHQ-2 Over the last 2 weeks, how often have you been bothered by any of the following problems? 1. Little interest or pleasure in doing things: not at all 2. Feeling down, depressed, or hopeless: not at all Total score: 0 PHQ-9 3. Trouble falling or staying asleep, or sleeping too much: Not at all 4. Feeling tired or having little energy: Not at all 5. Poor appetite or overeating: Not at all 6. Feeling bad about yourself - or that you are a failure or have let yourself or your family down: Not at all 7. Trouble concentrating on things, such as reading the newspaper or watching television: Not at all 8. Moving or speaking so slowly that other people could have noticed? - Or the opposite - being so fidgety or restless that you have been moving around a lot more than usual: not at all 9. Thoughts that you would be better off or of hurting yourself in some way: Not at all Total score: 0 Source: Developed by Drs. Stephen Malloy, Lala Horn, Anthony Rowland and colleagues, with an educational rashad from [employer]. Depression screen completed yes Social History Living Situation History Lives With: Family Housing: House Tobacco History Smoking Status: Never smoker Second Hand Smoke Exposure: No Alcohol History Alcohol Intake: Never Domestic Abuse History Do You Feel Safe at Home: Yes Care OB Visit Log OB Flowsheet Initial Weight: Not Recorded Date -?-?-?-?-?-?-?-?-?-?-?-?- EGA Weight BP Alb Glu CTX Pres Fundal ht FHR Mov Dilation Station Effacement Hx Notes Visit Note 03/03/25 -?-?-?-?-?-?-?-?-?-?-?-?- 30w 3d 76.714 kg 112/78 absent cephalic 33 145 active 20-year-old 1 para 0 for OBI. She has records. Transfer from Dr. Garza's office.'s patient has wrong dates. Her last period was July 11, 2024. Her estimated due date based on that April 17, 2025. Patient's first ultrasound January 28, 2025. Baby was 25 weeks 4 and this changed her EDC till 05/09/2025. Reports movement. Denies leaking. Denies bleeding. Denies contractions. Discussed labor precautions. Discussed kick count. Increase fluids. Continue prenatals. Reviewed labs and dates with patient. Return in a week for OB check and GBS 03/09/25 -?-?-?-?-?--?-?-?-?-?-?-?- 31w 2d 76.43 kg 107/68 absent cephalic 32 145 active Reports good movement. Occasional contractions and pressure. Denies leaking, denies bleeding. Patient denies any OB problem Kick count twice a day. I discussed with patient. I discussed danger signs and symptoms and ER precautions. Increase fluids. Continue prenatals. Return in 2 weeks for recheck 03/23/25 -?-?-?-?-?-?-?-?-?-?-?-?- 33w 2d 78.642 kg 110/72 absent cephalic 33 135 active Fetus active per patient. Denies labor complaints. Denies leaking, bleeding, contractions. Reviewed kick co unt twice a day. Discussed labor precautions. Encourage patient to drink more fluids. Return in 2 weeks OB check and GBS 04/11/25 -?-?-?-?-?-?-?-?-?-?-?-?- 36w 0d 80.059 kg 105/65 absent cephalic 36 132 active Fetus active. Denies leaking, bleeding, contractions. Feels pressure. No OB complaints GBS today. Reviewed kick count with patient to be done twice a day. Discussed labor precautions, ER precautions and danger signs symptoms return a week OB check 04/20/25 -?-?-?-?-?-?-?-?-?-?-?-?- 37w 2d 81.42 kg 103/68 absent cephalic 37 135 active Reports good mov ement. Denies leaking, bleeding or contractions Discussed GBS results. Kick count twice a day. Discussed labor precautions and ER precautions. Patient to walk in drink red raspberry tea and other measures to help cause contractions. And return Wegovy 05/02/25 -?-?-?-?-?-?-?-?-?-?-?-?- 39w 0d 82.781 kg 97/58 absent cephalic 39 135 active 1 -4 25 Reports good movement. SVE, L/TH/high. Occasional contraction and pressure. Denies leaking or Discussed labor precautions. Kick count twice a day. I discussed comfort measures for early labor and I encouraged patient to walk and move more and return in a week OB check. We also discussed diet decreasing sugary foods Discussed labor precautions. Kick count twice a day. I discussed comfort measures for early labor and I encouraged patient to walk and move more and return in a week OB check. We also discussed diet decreasing sugary foods. IOL 05/12/25 05/11/25 -?-?-?-?-?-?-?-?-?-?-?-?- 40w 2d 81.873 kg 115/78 absent cephalic 40 135 active 1 -4 25 Reports good movement. Occasional contraction. Denies leaking bleeding. NST BPP today. Discussed labor precautions. Kick count twice a day. Schedule induction of labor for May 13, 2025. Return in a week OB check if patient does not get improved labor DIOR Calculator Estimated Delivery Date Method Current WG Current Estimate 05/09/25 Ultrasound #1 40w 2d Other Estimates 04/17/25 LMP (Uncertain) 43w 3d Notes Visit Date: 04/20/25 Last Updated by: Mitzy Barahona CNM 04/19: GBS- Visit Date: 03/03/25 Last Updated by: Mitzy Barahona CNM 20 yo . EDC based on first sono 01/28/25: IUP: 25w4. CEDC: 05/09/25. O+,abs-, RPR:NR, HIV-,HC-,HBSAG-,GC/CT-, NIPT and carrier screen-, UT-, 1 hr gtt: wnl Office Procedures OBC Clinic LOC & Office Proc's Nursing/Assessment Patient Status: Established Patient OB Clinic Nursing Assessment: Medication Reconciliation, Update PMH in EMR and Vital Signs OB Clinic Coordination of Care: Complex Care and Chronic Disease 1-5, Consent,records obtained, informed consent, Education Simp Pt/Fam, 1 Ins Authorization, Lab and Imaging orders, Results/Orders obtained and Staff clarify orders Special Needs: Heart tones Established Patient Charge Established Patient Point Assignment: 150 Established Patient Point Charge: EP Level 4 (120-155) Assessment & Plan Diagnosis / Problem List (1) Encounter for supervision of high risk in third trimester, antepartum: Status: Acute Plan Discussed labor precautions. Kick count twice a day. Schedule induction of labor for May 13, 2025. And NST BPP today return in a week if patient does not get in for labor Additional Plan Follow Up: 1 Week (obc)
[2025-05-11 13:14] VITALS: BP 115/78; PULSE 76; RESP 16; TEMP 36.6; O2SAT 96; BMI 33.2
== END 2025-05-11 13:33 | disposition home or self-care (01) ==
LOC: HODSOBC 13:11
PROVIDERS: Supervising Provider Advanced Practice Midwife; Visit Provider Advanced Practice Midwife
DX: O09.893 Supervision of other high risk pregnancies, third trimester (principal); O47.1 False labor at or after 37 completed weeks of gestation; O48.0 Post-term pregnancy; Z3A.40 40 weeks gestation of pregnancy
CPT/HCPCS: 99214; G0463

== ENCOUNTER 2025-05-11 16:21 | Inpatient (IN) | payer MEDICAID, SELFPAY ==
[2025-05-11] VITALS (20 sets, daily range): BP systolic 104–115; BP diastolic 59–65; PULSE 65–93; RESP 16–99; TEMP 36.6–37.1; O2SAT 97–99; BMI 33.4; BMI 32.9
--- NOTE | 2025-05-11 14:12 | XR_ITS ---
Examination: Biophysical profile, ultrasound Date and time of exam: 05/11/2025, 08/26 1:00 p.m. Technique: Multiple transabdominal sonographic images of the pelvis abdomen obtained. Attention is directed to the breathing movement, gross body movement, amniotic fluid volume and tone. Findings: Single live IUP. Total biophysical profile is 8 of 8. breathing movement is 2. Gross body movement is 2. tone is 2. Qualitative amniotic fluid volume is 2 CORONA: 5.7 cm. FHR: 143 bpm. Impression: Biophysical profile is 8 of 8.
--- NOTE | 2025-05-11 16:42 | ESHP_ITS ---
Documentation for date of: 05/11/25 OB Labor/Induct. HPI History of Present Illness Chief complaint: induction of labor, category 2 FHR/post term : 1 Para: 0 Term pregnancies: 0 pregnancies: 0 Living children: 0 History of Abortions: Spontaneous and Elective: 0 History of Vaginal deliveries: 0 History of sections: No History of : No Date of last menstrual period: 08/02/24 DIOR: 05/09/25 Gestational Age (weeks): 40 Gestational Age (days): 2 Gestational age based on last menstrual period: 40 Indication for induction: post dates History of present illness: 20-year-old 1 para 0 admitted from labor and delivery because of nonreassuring heart rate monitoring strip. Patient saw Dr. Garza until she was 30 weeks . Since then she has been followed at [facility] OB clinic for care. Last. August 02, 2024. This gives EDC of May 09, 2025. Dates are based on a 25-week ultrasound in January. Patient has poor dates. Denies social habits. Denies surgery. Denies chronic illness. Patient is O+, antibody screen negative, RPR nonreactive, rubella immune, hepatitis B negative, hep C negative, HIV negative, GC and Chlamydia were negative. 1 hour GTT normal. GBS negative. NIPT and carrier screens were negative. Denies leaking, bleeding. Irregular contractions. And fetus is active History of Present Dating criteria: LMP confirmed by 2nd trimester US Adequate Care: No (LTC 16WKS) Ultrasounds: normal mid trimester US Obstetrical complications: none Medical complications: none Past Medical History Surgical History SURGICAL: Negative Section Meds Home Medications and Allergies Home Medications ?Medication ?Instructions ?Recorded ?Confirmed ?Type No Known Home Medications 03/03/2511/28 History Allergies Allergy/AdvReac Type Severity Reaction Status Date / Time No Known Allergies Allergy Unknown Uncoded 05/11/25 13:19 OB Exam Physical Exam Vital signs: Temp Pulse Resp BP Pulse Ox 97.8 F 65 18 111/62 98 05/11/25 14:12 05/11/25 16:24 05/11/25 14:12 05/11/25 16:24 05/11/25 16:05 Narrative: Alert and oriented. Normal heart rate and rhythm. Lungs clear no wheezes. Gravid abdomen. Gynecoid pelvis. Estimated weight 7 pounds 14 ounces. heart rate on admission category 2. Variability was moderate. Accelerations are present. But also variable decelerations. Contractions are irregular, mild to palpation. CORONA was 5.6 Detailed Labor and Delivery Exam Dilation (cm): 1 Effacement (%): L/thick Cervix position: posterior station: -3 Consistency: medium Presentation: Vertex Cervical ripeness score: 2 Membranes: intact monitor accelerations: 15x15 monitor decelerations: Variable rodent exterminator variability: Moderate (11-25) Contraction frequency (min): irreg Contraction duration (sec): 30 Tachysystole: No Contraction intensity: Mild OB Results Labs 05/11/25 16:30 OB Assessment & Plan Assessment and Plan (1) Normal labor and delivery: Status: Acute Additional Plan Induction method: per misoprostol protocol Plan: induction, anticipate NVD and consult MD horan
[2025-05-11 16:53] LABS: Basophils # (Auto) 0.0 Thou/mm3 (0.0-0.2); Basophils % (Auto) 0 % (0-2.5); Eosinophils # (Auto) 0.1 Thou/mm3 (0.0-0.5); Eosinophils % (Auto) 1 % (0-10); Hematocrit 43.5 % (36.0-46.0); Hemoglobin 14.4 g/dL (12.0-16.0); Immature Granulocytes Auto 0.11 Thou/mm3 (0.00-0.00); Lymphocytes # (Auto) 1.9 Thou/mm3 (1.0-4.8); Lymphocytes % (Auto) 19 % (10-50); Mean Corpuscular HGB Conc 33.1 g/dl (31.0-37.0); Mean Corpuscular Hemoglobin 30.5 pg (25.0-35.0); Mean Corpuscular Volume 92 fL (80-100); Monocytes # (Auto) 0.7 Thou/mm3 (0.0-0.8); Monocytes % (Auto) 7 % (0-12); Neutrophils # (Auto) 7.3 Thou/mm3 (1.8-7.7); Neutrophils % (Auto) 72 % (37-80); Nucleated Red Blood Cell # 0.00 Thou/mm3 (0.00-0.00); Nucleated Red Blood Cell % 0 /100 WBC (0); Platelet Count 254 Thou/mm3 (140-440); RDW Standard Deviation 48.9 fL (36.4-46.3); Red Blood Count 4.72 Miln/mm3 (4.00-5.20); White Blood Count 10.1 Thou/mm3 (4.5-11.0)
[2025-05-11 17:37] LABS: Syphilis Nonreactive (Nonreactive)
--- NOTE | 2025-05-11 17:38 | XR_ITS ---
EXAMINATION: age Limited TECHNIQUE: Limited transabdominal sonographic images pelvis Date and time: May 11, 2025, 1815 hours INDICATIONS: Unknown presentation unknown weight. FINDINGS: Viable intrauterine gestation cephalic presentation spine maternal left Cardiac motion 137 bpm Estimated age 37 weeks 2 days Estimated weight 3068 g Head measurement appears larger on this study, clinical correlation advised IMPRESSION: Viable intrauterine gestation cephalic presentation
[2025-05-12] VITALS (75 sets, daily range): BP systolic 90–137; BP diastolic 50–86; PULSE 58–93; RESP 10–20; TEMP 36.5–37.3; O2SAT 92–100
[2025-05-12 01:17] LABS: Amphetamine/Metham Scrn,Ur OB Negative (Negative); Benzoylecgonine Screen, Ur OB Negative (Negative); Opiate Screen,Urine OB Negative (Negative); THC Screen,Urine OB Negative (Negative)
[2025-05-12] MEDS: RINGERS LACTATED 1000 ML 1,000 ML 100 ML IV ×3 (01:52→11:23)
--- NOTE | 2025-05-12 08:40 | ESPR_ITS ---
Documentation for date of: 05/12/25 OB Labor Progress Note Pain Control Pain control: tolerating well Pelvic Exam Dilation (cm): 2-3 Effacement (%): 70 station: -2 Amniotic membrane status: Intact Contractions Monitor mode: External Contraction frequency: 2-4 Contraction duration: 40 Contraction pattern: Coupling Contraction phase: Resting Contraction intensity: Mild Status status: Category ll Assessment and Plan Assessment: induction ongoing Plan OB labor note: continuous present management CNM Management MD Consulted (describe details below): Yes History of Present Illness HPI 20-year-old 1 para 0 admitted from labor and delivery because of nonreassuring heart rate monitoring strip. Patient saw Dr. Garza until she was 30 weeks . Since then she has been followed at [facility] OB clinic for care. Last. August 02, 2024. This gives EDC of May 09, 2025. Dates are based on a 25-week ultrasound in January. Patient has poor dates. Denies social habits. Denies surgery. Denies chronic illness. Patient is O+, antibody screen negative, RPR nonreactive, rubella immune, hepatitis B negative, hep C negative, HIV negative, GC and Chlamydia were negative. 1 hour GTT normal. GBS negative. NIPT and carrier screens were negative. Denies leaking, bleeding. Irregular contractions. And fetus is active
[2025-05-12] MEDS: fentaNYL CIT INJ 50 mCg/ML AMP 2ML 100 MCG IVP (10:26)
[2025-05-12] MEDS: METOCLOPRAMIDE INJ 5 MG/ML VIAL 2 ML 10 MG IVP (15:00)
[2025-05-12] MEDS: ceFAZolin/D5W 2 GM IV 2 GM/100 ML BAG IV (15:00)
--- NOTE | 2025-05-12 15:03 | ESPR_ITS ---
Documentation for date of: 05/12/25 OB Labor Progress Note Pain Control Comments: received epidural and still not comfortable Pelvic Exam Dilation (cm): 6.5 Effacement (%): 90 station: -1 Amniotic membrane status: Ruptured Contractions Monitor mode: External Contraction frequency: 2-3 Contraction pattern: Coupling Contraction phase: Resting Contraction intensity: Mild Status status: Category ll Assessment and Plan Assessment: active labor Plan OB labor note: Comments: Patient was turned over to me due to cat 2 heart tracing and patient is now not wanting to try further and wants a c section . Patient taken to the OR immediately as the bradycardia with heart rate in the 90's for an immediate stat c section History of Present Illness HPI 20-year-old 1 para 0 admitted from labor and delivery because of nonreassuring heart rate monitoring strip. Patient saw Dr. Garza until she was 30 weeks . Since then she has been followed at [facility] OB clinic for care. Last. August 02, 2024. This gives EDC of May 09, 2025. Dates are based on a 25-week ultrasound in January. Patient has poor dates. Denies social habits. Denies surgery. Denies chronic illness. Patient is O+, antibody screen negative, RPR nonreactive, rubella immune, hepatitis B negative, hep C negative, HIV negative, GC and Chlamydia were negative. 1 hour GTT normal. GBS negative. NIPT and carrier screens were negative. Denies leaking, bleeding. Irregular contractions. And fetus is active
--- NOTE | 2025-05-12 15:37 | PD.GYNPROC ---
Operative Note - WIND INSTRUMENT REPAIRER Procedure Date of procedure: 05/12/25 Procedure Performed: emergemcy primary Low transverse c section Indication: category tracing and intolerance to labor Pre-Op diagnosis: see indication Post-Op diagnosis: same / body cord Anesthesia type: Epidural Procedure description: After an informed consent patient was taken to the operating room, she was prepped and draped in the usual sterile fashion after receiving spinal anesthesia. A timeout was done. Surgical site infection prophylaxis was given Coving[place] was in place and draining clear urine SCDs were in place After verification of adequacy of anesthesia, a Pfannansteil incision was made 2 cm above the symphysis pubis and carried laterally on the skin and it was carried down to subcutaneous tissue and then to the rectus fascia, the rectus fascia was from underlying muscles by sharp and blunt dissection Peritoneal cavity was entered atraumatically A Cole retractor placed superiorly, and a bladder blade inferiorly Lower uterine segment was well-formed Incision made in the lower uterine segment, and amniotic sac ruptured, clear amniotic fluid Baby was delivered as cephalic Cord clamped and cut and baby received by the waiting nursery team Cord blood collected, placenta removed spontaneously, uterus exteriorized and closed in a wet lap Uterine cavity clean dry of any remaining membranes with a dry lap, uterine incision closed with the help of 0 Monocryl in 2 layers in a running , interlocking fashion . Hemostasis is good Uterus is firm Both tubes and ovaries look normal Uterus is placed back in the peritoneal cavity in the pelvis Instrument needle and sponge count is correct, hemostasis was checked for again on the uterine incision and it is confirmed Peritoneal closure done with 2-0 Vicryl Rectus abdominis muscles approximated with 2,0 vicryl Rectus fascia approximated with 0 Monocryl running sutures Subcutaneous tissue irrigated closed with and approximated with 3-0 plain catgut Skin approximated with 4-0 Monocryl./Insorbs Tape dressing applied with Dermabond ABD dressing placed on top Covington is draining clear urine EBL is 600 cc Patient delivered a liveborn male Apgars are 8 and 9 Specimen: none Estimated blood loss (ml): 600 Findings: see procedure Complications: none Narrative: see procedure Surgical staff LEONARD Stewart Operation Date: 05/12/25 15:15 <No data on this case meets the specified criteria> Diagnosis Discharge Diagnosis (1) intolerance to labor, delivered, current hospitalization: Status: Acute Problem List Completed Was Problem List Reviewed/Reconciled?: Yes
[2025-05-12] MEDS: ACETAMINOPHEN 325 MG TABLET 650 MG PO (20:24)
[2025-05-13 00:22] VITALS: BP 102/60; PULSE 81; RESP 16; TEMP 37.1; O2SAT 97
[2025-05-13] MEDS: OXYTOCIN in NS 20 units 20 UNIT/1,000 ML BAG 125 UNIT IV (00:32)
[2025-05-13] MEDS: ACETAMINOPHEN 325 MG TABLET 650 MG PO ×2 (03:16→22:15)
[2025-05-13 03:22] VITALS: BP 104/62; PULSE 95; RESP 17; TEMP 36.9; O2SAT 97
[2025-05-13 06:08] LABS: Basophils # (Auto) 0.1 Thou/mm3 (0.0-0.2); Basophils % (Auto) 0 % (0-2.5); Eosinophils # (Auto) 0.0 Thou/mm3 (0.0-0.5); Eosinophils % (Auto) 0 % (0-10); Hematocrit 35.9 % (36.0-46.0); Hemoglobin 11.8 g/dL (12.0-16.0); Immature Granulocytes Auto 0.09 Thou/mm3 (0.00-0.00); Lymphocytes # (Auto) 2.2 Thou/mm3 (1.0-4.8); Lymphocytes % (Auto) 13 % (10-50); Mean Corpuscular HGB Conc 32.9 g/dl (31.0-37.0); Mean Corpuscular Hemoglobin 29.9 pg (25.0-35.0); Mean Corpuscular Volume 91 fL (80-100); Monocytes # (Auto) 1.2 Thou/mm3 (0.0-0.8); Monocytes % (Auto) 7 % (0-12); Neutrophils # (Auto) 13.3 Thou/mm3 (1.8-7.7); Neutrophils % (Auto) 79 % (37-80); Nucleated Red Blood Cell # 0.00 Thou/mm3 (0.00-0.00); Nucleated Red Blood Cell % 0 /100 WBC (0); Platelet Count 197 Thou/mm3 (140-440); RDW Standard Deviation 48.9 fL (36.4-46.3); Red Blood Count 3.94 Miln/mm3 (4.00-5.20); White Blood Count 16.8 Thou/mm3 (4.5-11.0)
[2025-05-13] MEDS: DOCUSATE SOD 100 MG CAPSULE PO (08:48)
[2025-05-13] MEDS: IBUPROFEN TAB 400 MG TABLET 800 MG PO ×2 (08:48→18:31)
[2025-05-13 09:56] VITALS: BP 96/59; PULSE 88; RESP 17; TEMP 36.8; O2SAT 98
--- NOTE | 2025-05-13 10:06 | PD.LDPPPRG ---
Subjective Subjective Interval history: Patient doing well overall. Pain is controlled. She is ambulating no lightheadedness/dizziness. Awaiting due to void. Tolerating regular diet without nausea/vomiting. Passing gas. No fevers/chills, no CP/SOB. Exam Vital Signs Temp Pulse Resp BP Pulse Ox O2 Del Method 98.5 F 95 17 104/62 97 Room Air 05/13/25 03:22 05/13/25 03:22 05/13/25 03:22 05/13/25 03:22 05/13/25 03:22 05/13/25 03:22 Narrative Exam General: well developed, well nourished, no acute distress, conversant Cardiac: normal heart rate Lungs: breathing without distress Abdomen: soft, post-gravid, non-tender, no rebound or guarding, pfannenstiel incision covered by dry/clean/intact prineo bandage. Incision well reapproximated. No erythema, drainage or induration. Fundus firm at u-2cm. Extremities: no pain with palpation of calves, trace edema of BLE Objective Labs 05/13/25 04:56 Labs: Laboratory Results - last 24 hr 05/13/25 04:56 WBC 16.8 H D RBC 3.94 L Hgb 11.8 L D Hct 35.9 L MCV 91 MCH 29.9 MCHC 32.9 RDW Std Deviation 48.9 H Plt Count 197 D Neut % (Auto) 79 Lymph % (Auto) 13 Bartow % (Auto) 7 Eos % (Auto) 0 Baso % (Auto) 0 Neut # (Auto) 13.3 H Lymph # (Auto) 2.2 Bartow # (Auto) 1.2 H Eos # (Auto) 0.0 Baso # (Auto) 0.1 Immature Gran # (Auto) 0.09 H Absolute Nucleated RBC 0.00 Immature Gran % 1 H Nucleated RBC % 0 Assessment & Plan Problem List (1) delivery delivered: Status: Acute Assessment and plan: Magali is a 20yo G1 [id number] s/p uncomplicated PLTCS for Cat II FHRT remote from delivery while undergoing IOL for non-reassuring surveillance in office, doing well on POD 1. Vitals wnl, benign exam. Hemodynamically stable with no evidence of infection. Appropriate change in H/H from 14.4 to 11.8. Plan: -Continue routine /post-op care -Awaiting due to void -Regular diet -motrin 800mg PO Q8hr, norco 5/325mg PO Q6hr prn pain -Encourage ambulation and use of IS -Anticipate discharge home tomorrow if meeting all milestones (2) intolerance to labor, delivered, current hospitalization: Status: Acute Time Spent With Patient Time: Total time spent is greater than 50% in coordination of care (as documented) at patient's floor/unit and/or counseling patient:
--- NOTE | 2025-05-13 12:58 | PC.SS ---
NON LICENSED NUCLEAR EQUIPMENT OPERATOR conducted bedside contact with the patient to address nursing referral indicating patient was late to care at 16 weeks.? NON LICENSED NUCLEAR EQUIPMENT OPERATOR utilized sale professional digital marketing to assist with discussion.? NON LICENSED NUCLEAR EQUIPMENT OPERATOR introduced self and role.? At bedside with patient was maternal aunt, Ela Lin, Patient gave permission for aunt to be present during discussion.? Patient confirmed late to care.? Patient stated that during timeframe residing in [place].? Upon return to [place] patient participated in OB services with Dr. Sinclair.? Patient reports consistency with OB appointments.? Infant is the patient?s 1st child.? delivered via .? Patient plans on combo feeding the infant.? FOB, Jesus Cumplido; will be involved in the rearing of the infant.? Patient denies possessing history of mental health.? Patient is receiving WIC and SNAP.? Patient is not receiving TANF.? Patient denies history of alcohol/drug use.? Patient denies CWS intervention.? Patient denies history of domestic violence episodes.? Patient has access to appropriate supplies and equipment.? Aunt will provide transportation upon discharge.? Patient describes possessing support system consisting of parents and extended family.? NON LICENSED NUCLEAR EQUIPMENT OPERATOR provided community resources to include [employer] and [employer].? No further intervention required at this time, social worker school will be available to address any further concerns.? NON LICENSED NUCLEAR EQUIPMENT OPERATOR updated bedside nurse.?
[2025-05-13 13:00] VITALS: BP 98/53; PULSE 84; RESP 16; TEMP 36.6; O2SAT 97
[2025-05-13 16:30] VITALS: BP 96/61; PULSE 98; RESP 17; TEMP 36.3; O2SAT 98
[2025-05-13 20:00] VITALS: BP 108/69; PULSE 100; RESP 18; TEMP 36.9; O2SAT 95
[2025-05-14] VITALS: BP 98/59; PULSE 77; RESP 20; TEMP 36.8; O2SAT 97
[2025-05-14 05:00] VITALS: BP 103/66; PULSE 82; RESP 18; TEMP 36.3; O2SAT 96
[2025-05-14] MEDS: DOCUSATE SOD 100 MG CAPSULE PO (07:48)
[2025-05-14 08:00] VITALS: BP 98/60; PULSE 69; RESP 15; TEMP 36.6; O2SAT 98
[2025-05-14] MEDS: IBUPROFEN TAB 400 MG TABLET 800 MG PO (11:46)
--- NOTE | 2025-05-14 12:06 | PD.LDDS ---
DS: Providers Provider Date of admission: 05/11/25 16:21 Primary care physician: Physician No Primary/Family Admitting Provider: Mitzy Barahona CNM Attending Provider on Admission: Marzena Alvarez MD Consults: 05/12/25 15:42 Referral Routine Comment: Attending Provider on DC: Marzena Alvarez MD Discharging Provider: Marzena Alvarez MD DS: Diagnosis Problem List Completed Was Problem List Reviewed/Reconciled?: Yes Summary/Hosp Course Brief History: 20-year-old 1 para 0 admitted from labor and delivery because of nonreassuring heart rate monitoring strip. Patient saw Dr. Garza until she was 30 weeks . Since then she has been followed at [facility] OB clinic for care. Last. August 02, 2024. This gives EDC of May 09, 2025. Dates are based on a 25-week ultrasound in January. Patient has poor dates. Denies social habits. Denies surgery. Denies chronic illness. Patient is O+, antibody screen negative, RPR nonreactive, rubella immune, hepatitis B negative, hep C negative, HIV negative, GC and Chlamydia were negative. 1 hour GTT normal. GBS negative. NIPT and carrier screens were negative. Denies leaking, bleeding. Irregular contractions. And fetus is active. -- Magali is doing well on POD 2 s/p uncomplicated PLTCS for Cat II FHRT remote from delivery while undergoing IOL for non-reassuring surveillance in office. Vitals wnl, benign exam. Hemodynamically stable with no evidence of infection. Appropriate change in H/H from 14.4 to 11.8. She has had an uncomplicated post-operative course, meeting all milestones and feels ready for discharge home. She is ambulating without lightheadedness, tolerating regular diet no n/v, spontaneously voiding without issue. She has no chest pain or shortness of breath. No fevers or chills. Pain well controlled. Peripartum Data Delivery Method: Low Transverse Episiotomy Description: None Procedures: Procedures Operation Date: 05/12/25 15:15 Actual Procedure Side Surgeon p in OB Vivi Dickens MD Status at Discharge Functional status at discharge: independent ambulation Overall status at discharge: patient is back to baseline Time Spent with Patient Time attestation: Total time spent providing and/or coordinating discharge services: Exam Vital Signs Temp Pulse Resp BP Pulse Ox O2 Del Method 97.9 F 69 15 98/60 98 Room Air 05/14/25 08:00 05/14/25 08:00 05/14/25 08:00 05/14/25 08:00 05/14/25 08:00 05/14/25 08:00 Narrative Exam General: well developed, well nourished, no acute distress, conversant Cardiac: normal heart rate Lungs: breathing without distress Abdomen: soft, post-gravid, non-tender, no rebound or guarding, pfannenstiel incision covered by dry/clean/intact prineo bandage. Incision well reapproximated. No erythema, drainage or induration. Fundus firm at u-2cm. Extremities: no pain with palpation of calves, trace edema of BLE Discharge Plan Plan Patient Disposition: HOME (Self Care) Patient condition on transfer: Stable Prescriptions/Referrals Prescriptions/Med Rec: New hydrocodone-acetaminophen 5-325 mg Tablet 1 tab PO Q6H MDD 4 tablets PRN (Reason: Patient rated pain 7 to 8) 7 Days Qty: 10 0RF docusate sodium 100 mg Capsule 100 mg PO BID 10 Days Qty: 20 0RF ibuprofen 800 mg tablet 800 mg PO Q8H PRN (Reason: pain) Qty: 30 0RF Continued PNV no.078-vvox-twbou acid 28 mg iron- 800 mcg tablet 1 tab PO QDAY Referrals: No Primary/Family,Physician [Primary Care Provider] Patient/Caregiver Discharge Instructions Discharge Activity: activity as tolerated and other Other Discharge Activity Instructions:: Follow up with OB in 1 week vaginal rest and no heavy lifting more than 10 pounds for 6 weeks[address] no [address] while taking narcotic. keep incision clean and dry, do not submerge. Other Discharge Diet Instructions: regular Education Materials: After Delivery [place] Concerns, Breast Care After , After a , C Section Dc Print Language: Burundian Activity Restrictions/Additional Instructions: follow up with your OBGYN in 1 to 2 weeks for incision check, call clinic to schedule appointment Stand Alone Forms: Carlie Award Info., Patient Portal Info Letter Discharge Order Discharge Orders: Discharge (Routine); Ordered 05/14/25 Ordered By: Marzena Alvarez Planned Discharge Date 05/14/25
== END 2025-05-14 13:07 | disposition home or self-care (01) | DRG 540 ==
LOC: S4SX 05-12 06:25 → S4S1 05-12 06:25 → S4NX 05-12 15:14
PROVIDERS: Obstetrics & Gynecology; Admitting Provider Advanced Practice Midwife; Referring Provider Advanced Practice Midwife; Visit Provider Obstetrics & Gynecology
PROC: 10D00Z1 Extraction of Products of Conception, Low, Open Approach (ICD-10-PCS; CPT 59514; principal; 2025-05-12 15:00)
DX: O48.0 Post-term pregnancy (principal); Z37.0 Single live birth; Z3A.40 40 weeks gestation of pregnancy; O76 Abnormality in fetal heart rate and rhythm complicating labor and delivery
CPT/HCPCS: 36415; 59025; 76815; 76819; 80307; 85025; 86780; 86850; 86900; 86901; A4217; A4314; A4649; J0689; J2250; J2274; J2590; J2704; J2765; J2795; J3010; J7120; A9270; J2270

== ENCOUNTER 2025-05-31 15:31 | Outpatient (AMB) | payer MEDICAID, SELFPAY ==
--- NOTE | 2025-05-31 15:42 | AMB.OBPP ---
Vital Signs 05/31/25 15:43 Weight 73.142 kg Weight Measurement Method Standing Scale BP 119/75 Blood Pressure Source Automatic Cuff Blood Pressure Location Left Upper Arm Position Sitting Respiration 18 Pulse 83 Pulse Source Monitor Temp 97.2 F Temp Source Oral Pulse Oximetry (%) 98 Oxygen Delivery Method Room Air Allergies/Home Meds Allergies & Medications Allergies No Known Allergies Allergy (Verified 05/31/25 15:44) Medication Reconciliation vitamins no.121-iron 28 mg-folic acid 800 mcg tablet 1 tab PO QDAY 05/11/25 [History Confirmed 05/31/25] ibuprofen 800 mg tablet 800 mg PO Q8H PRN pain #30 tabs 05/13/25 [Rx Confirmed 05/31/25] docusate sodium 100 mg capsule (Colace) 100 mg PO BID #20 caps 05/31/25 [Rx] ibuprofen 800 mg tablet 800 mg PO Q8H pain #30 tabs 05/31/25 [Rx] Intake Visit Data Collection New Patient or Established: Established Patient (seen at [facility] within 3 years) Reason for Visit:: PP Seen by Clinical Staff ONLY (RN/MA): No Indian Trader Required: No Do You Feel Safe at Home: Yes Authorities Contacted: N/A PCP or OBGYN visit in last 3 months: Yes Date of Last PCP or OBGYN visit: 05/14/25 Hx Now: No Are you currently on any form of Control: No Pain Present Currently: No Pain Scale Used: Arm[place]/Numerical Pain scale:: 0 Smoking Status Smoking Status: Never smoker Immunizations Flu Vaccine in the Last 12 Months: No Flu Vaccine Exclusion Criteria: No Exclusion Criteria 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 Medical History Past Medical History: No Hx Neurological Disorders, No Hx Cardiac Disorders, No Hx Hypertension, No Hx Cancer, No Hx Blood Disorders, No Hx Gastrointestinal Disorders, No Hx Renal Disease, No Hx Diabetes Mellitus Type 1 and No Hx Diabetes Mellitus Type 2 Questionnaires Covid-19 Vaccine Questionnaire Has patient been vacinated for Covid-19 Have you been vacinated for Covid-19: Yes Social History Living Situation History Lives With: Family Housing: House Tobacco History Smoking Status: Never smoker Second Hand Smoke Exposure: No Alcohol History Alcohol Intake: Never Domestic Abuse History Do You Feel Safe at Home: Yes EPDS - PP Depression Screening Altha Pospartum Depression Screen I have been able to laugh and see the funny side of things: (0) As much as I always could I have looked forward with enjoyment to things: (0) As much as I ever did I have blamed myself unnecessarily when things went wrong: (0) No, never I have been anxious or worried for no good reason: (0) No, not at all I have felt scared or panicky for no very good reason: (0) No, not at all Things have been getting on top of me: (0) No, I have been coping as well as ever I have been so unhappy that I have had difficulty sleeping: (0) No, not at all I have felt sad or miserable: (0) No, not at all I have been so unhappy that I have been crying: (0) No, never The thought of harming myself has occurred to me: (0) Never Care OB Visit Log OB Flowsheet Initial Weight: Not Recorded Date <del>?</del> EGA Weight BP Alb Glu CTX Pres Fundal ht FHR Mov Dilation Station Effacement Hx Notes Visit Note 03/03/25 <del>?</del> 30w 3d 76.714 kg 112/78 absent cephalic 33 145 active 20-year-old 1 para 0 for OBI. She has records. Transfer from Dr. Garza's office.'s patient has wrong dates. Her last period was July 11, 2024. Her estimated due date based on that April 17, 2025. Patient's first ultrasound January 28, 2025. Baby was 25 weeks 4 and this changed her EDC till 05/09/2025. Reports movement. Denies leaking. Denies bleeding. Denies contractions. Discussed labor precautions. Discussed kick count. Increase fluids. Continue prenatals. Reviewed labs and dates with patient. Return in a week for OB check and GBS 03/09/25 <del>?</del> 31w 2d 76.43 kg 107/68 absent cephalic 32 145 active Reports good movement. Occasional contractions and pressure. Denies leaking, denies bleeding. Patient denies any OB problem Kick count twice a day. I discussed with patient. I discussed danger signs and symptoms and ER precautions. Increase fluids. Continue prenatals. Return in 2 weeks for recheck 03/23/25 <del>?</del> 33w 2d 78.642 kg 110/72 absent cephalic 33 135 active Fetus active per patient. Denies labor complaints. Denies leaking, bleeding, contractions. Reviewed kick count twice a day. Discussed labor precautions. Encourage patient to drink more fluids. Return in 2 weeks OB check and GBS 04/11/25 <del>?</del> 36w 0d 80.059 kg 105/65 absent cephalic 36 132 active Fetus active. Denies leaking, bleeding, contractions. Feels pressure. No OB complaints GBS today. Reviewed kick count with patient to be done twice a day. Discussed labor precautions, ER precautions and danger signs symptoms return a week OB check 04/20/25 <del>?</del> 37w 2d 81.42 kg 103/68 absent cephalic 37 135 active Reports good movement. Denies leaking, bleeding or contractions Discussed GBS results. Kick count twice a day. Discussed labor precautions and ER precautions. Patient to walk in drink red raspberry tea and other measures to help cause contractions. And return Wegovy 05/02/25 <del>?</del> 39w 0d 82.781 kg 97/58 absent cephalic 39 135 active 1 - 25 Reports good movement. SVE, L/TH/high. Occasional contraction and pressure. Denies leaking or Discussed labor precautions. Kick count twice a day. I discussed comfort measures for early labor and I encouraged patient to walk and move more and return in a week OB check. We also discussed diet decreasing sugary foods Discussed labor precautions. Kick count twice a day. I discussed comfort measures for early labor and I encouraged patient to walk and move more and return in a week OB check. We also discussed diet decreasing sugary foods. IOL 05/12/25 05/11/25 <del>?</del> 40w 2d 81.873 kg 115/78 absent cephalic 40 135 active 1 -4 25 Reports good movement. Occasional contraction. Denies leaking bleeding. NST BPP today. Discussed labor precautions. Kick count twice a day. Schedule induction of labor for May 13, 2025. Return in a week OB check if patient does not get improved labor DIOR Calculator Estimated Delivery Date Method Current WG Current Estimate 05/09/25 Ultrasound #1 43w 1d Other Estimates 04/17/25 LMP (Uncertain) 46w 2d Notes Visit Date: 04/20/25 Last Updated by: Mitzy Barahona CNM 04/19: GBS- Visit Date: 03/03/25 Last Updated by: Mitzy Barahona CNM 20 yo . EDC based on first sono 01/28/25: IUP: 25w4. CEDC: 05/09/25. O+,abs-, RPR:NR, HIV-,HC-,HBSAG-,GC/CT-, NIPT and carrier screen-, [place]-, 1 hr gtt: wnl HPI Interval History: 20-year-old 1 para 1 for 2-week . Patient was a primary section May 12, 2025. was for her failed induction. Patient had a baby boy weighing 7 pounds 4 ounces. Patient is bottlefeeding. She has good support at home and lives with her aunt. Denies any depression. She is very happy. The father is in [place]. Patient is voiding and passing gas no complaints of infection. 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 Lungs clear no wheezes. Abdomen is soft nontender. Uterus well involuted. Perineum is intact no lacerations. No swelling. Small lochia. Negative Homans' sign. 2+ DTRs. No edema no swelling. Breasts are soft, low transverse incision intact, no s/s of infection, well approximated General Limitations: no limitations General Appearance: alert, in no apparent distress, comfortable, cooperative, healthy appearing, well developed and well groomed Head Head exam: atraumatic, normocephalic and normal inspection ENT ENT exam: Present normal exam, normal oropharynx and mucous membranes moist Neck Neck exam: Present normal inspection, full ROM and trachea midline Chest Chest inspection: Present normal inspection and symmetric chest wall rise Resp Respiratory exam: Present normal lung sounds bilaterally Card Cardiovascular exam: Present regular rate, normal rhythm and normal heart sounds Abdominal Abdominal exam: Present soft and normal bowel sounds Psych Psychiatric exam: Present normal affect and normal mood Skin Skin exam: Present warm, dry, intact and normal color Office Procedures OBC Clinic LOC & Office Proc's Nursing/Assessment Patient Status: Established Patient OB Clinic Nursing Assessment: Medication Reconciliation, Update PMH in EMR and Vital Signs OB Clinic Coordination of Care: Consent,records obtained, informed consent, Education Simp Pt/Fam, Lab and Imaging orders, Results/Orders obtained and Staff clarify orders Established Patient Charge Established Patient Point Assignment: 80 Established Patient Point Charge: EP Level 3 (80-115) Assessment & Plan Diagnosis / Problem List (1) 2 weeks follow-up: Status: Acute Plan Reviewed wound care. Encourage ambulation. Increase fluids. Continue prenatals. I refilled Colace 100 p.o. twice daily x 1 week. And also I refilled her ibuprofen 800 p.o. Q8. No heavy lifting. Regular diet. Return in 3 weeks for control Care Reviewed delivery summary and any complications: No Uterus involuted to: 3 below Perineal / incision healing noted: No Screened for depression: Yes Depression counseling provided: No Discussed family planning & contraception: Yes Contraception planned: unsure Counseling on safe resumption of sexual activity: Yes Counseling on gradual excercise: Yes Discussed and concerns (describe), provided support: No Referred to nuclear operations specialist: No Counseled on good nutrition, hydration, and self care: Yes Reviewed vaccine status: No Chronic & current problems reconciled on problem list: Yes care discussed; questions answered: feeding Follow up: routine/prn Additional counseling & anticipatory guidance provided: No heavy lifting. Increase fluids. Continue prenatals. I refilled her ibuprofen 800 p.o. Q8 for cramping. And then Colace is 100 p.o. twice daily x 7 more days increase roughage discussed ER precautions and return in 3 weeks for control
[2025-05-31 15:43] VITALS: BP 119/75; PULSE 83; RESP 18; TEMP 36.2; O2SAT 98
== END 2025-05-31 16:18 | disposition home or self-care (01) ==
LOC: HODSOBC 15:32
PROVIDERS: Supervising Provider Advanced Practice Midwife; Visit Provider Advanced Practice Midwife
DX: Z39.2 Encounter for routine postpartum follow-up (principal)
CPT/HCPCS: 99213; G0463

== ENCOUNTER 2025-06-21 08:18 | Outpatient (AMB) | payer MEDICAID, SELFPAY ==
--- NOTE | 2025-06-21 08:22 | AMBOBPPN_ITS ---
Vital Signs 06/21/25 08:33 Weight 73.595 kg Weight Measurement Method Standing Scale BP 128/83 Blood Pressure Source Automatic Cuff Blood Pressure Location Left Upper Arm Position Sitting Respiration 18 Pulse 94 Pulse Source Monitor Temp 98.0 F Temp Source Oral Pulse Oximetry (%) 98 Oxygen Delivery Method Room Air Allergies/Home Meds Allergies & Medications Allergies No Known Allergies Allergy (Verified 06/21/25 08:29) Medication Reconciliation vitamins no.121-iron 28 mg-folic acid 800 mcg tablet 1 tab PO QDAY 05/11/25 [History Confirmed 06/21/25] ibuprofen 800 mg tablet 800 mg PO Q8H PRN pain #30 tabs 05/13/25 [Rx Confirmed 06/21/25] docusate sodium 100 mg capsule (Colace) 100 mg PO BID #20 caps 06/21/25 [Rx] ibuprofen 800 mg tablet 800 mg PO Q8H pain #30 tabs 06/21/25 [Rx] Intake Visit Data Collection New Patient or Established: Established Patient (seen at [facility] within 3 years) Reason for Visit:: Seen by Clinical Staff ONLY (RN/MA): No Psychosocial Rehabilitation Counselor Required: No Do You Feel Safe at Home: Yes Authorities Contacted: N/A PCP or OBGYN visit in last 3 months: Yes Date of Last PCP or OBGYN visit: 05/14/25 Hx Now: Yes Are you currently on any form of Control: No Pain Present Currently: No Pain Scale Used: Arm[place]/Numerical Pain scale:: 0 Smoking Status Smoking Status: Never smoker Immunizations Flu Vaccine in the Last 12 Months: No Flu Vaccine Exclusion Criteria: No Exclusion Criteria 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: Past Medical History Past Medical History: No Hx Neurological Disorders, No Hx Cardiac Disorders, No Hx Hypertension, No Hx Cancer, No Hx Blood Disorders, No Hx Gastrointestinal Disorders, No Hx Renal Disease, No Hx Diabetes Mellitus Type 1 and No Hx Diabetes Mellitus Type 2 Questionnaires Covid-19 Vaccine Questionnaire Has patient been vacinated for Covid-19 Have you been vacinated for Covid-19: Yes Social History Living Situation History Marital Status: Single Lives With: Family Housing: House Tobacco History Smoking Status: Never smoker Second Hand Smoke Exposure: No Alcohol History Alcohol Intake: Never Domestic Abuse History Do You Feel Safe at Home: Yes EPDS - PP Depression Screening [place] Pospartum Depression Screen I have been able to laugh and see the funny side of things: (0) As much as I always could I have looked forward with enjoyment to things: (0) As much as I ever did I have blamed myself unnecessarily when things went wrong: (0) No, never I have been anxious or worried for no good reason: (0) No, not at all I have felt scared or panicky for no very good reason: (0) No, not at all Things have been getting on top of me: (0) No, I have been coping as well as ever I have been so unhappy that I have had difficulty sleeping: (0) No, not at all I have felt sad or miserable: (0) No, not at all I have been so unhappy that I have been crying: (0) No, never The thought of harming myself has occurred to me: (0) Never Total Score: EPDS Score: Referral is indicated for score of 9 or more, suicidal, or if prov ider believes patient is depressed regardless of score.: 0 EPDS completed yes Care OB Visit Log OB Flowsheet Initial Weight: Not Recorded Date -?-?-?-?-?-?-?-?-?-?-?-?- EGA Weight BP Alb Glu CTX Pres Fundal ht FHR Mov Dilation Station Effacement Hx Notes Visit Note 03/03/25 -?-?-?-?-?-?-?-?-?-?-?-?- 30w 3d 76.714 kg 112/78 absent cephalic 33 145 active 20-year-old 1 para 0 for OBI. She has records. Transfer from Dr. Garza's office.'s patient has wrong dates. Her last period was July 11, 2024. Her estimated due date based on that April 17, 2025. Patient's first ultrasound January 28, 2025. Baby was 25 weeks 4 and this changed her EDC till 05/09/2025. Reports movement. Denies leaking. Denies bleeding. Denies contractions. Discussed labor precautions. Discussed kick count. Increase fluids. Continue prenatals. Reviewed labs and dates with patient. Return in a week for OB check and GBS 03/09/25 -?-?-?-?-?-?-?-?-?-?-?-?- 31w 2d 76.43 kg 107/68 absent cephalic 32 145 active Reports good movement. Occasional contractions and pressure. Denies leaking, denies bleeding. Patient denies any OB problem Kick count twice a day. I discussed with patient. I discussed danger signs and symptoms and ER precautions. Increase fluids. Continue prenatals. Return in 2 weeks for recheck 03/23/25 -?-?-?-?-?-?-?-?-?-?-?-?- 33w 2d 78.642 kg 110/72 absent cephalic 33 135 active Fetus active per patient. Denies labor complaints. Denies leaking, bleeding, contractions. Reviewed kick co unt twice a day. Discussed labor precautions. Encourage patient to drink more fluids. Return in 2 weeks OB check and GBS 04/11/25 -?-?-?-?-?-?-?-?-?-?-?-?- 36w 0d 80.059 kg 105/65 absent cephalic 36 132 active Fetus active. Denies leaking, bleeding, contractions. Feels pressure. No OB complaints GBS today. Reviewed kick count with patient to be done twice a day. Discussed labor precautions, ER precautions and danger signs symptoms return a week OB check 04/20/25 -?-?-?-?-?-?-?-?-?-?-?-?- 37w 2d 81.42 kg 103/68 absent cephalic 37 135 active Reports good movement. Denies leaking, bleeding or contractions Discussed GBS results. Kick count twice a day. Discussed labor precautions and ER precautions. Patient to walk in drink red raspberry tea and other measures to help cause contractions. And return Wegovy 05/02/25 -?-?-?-?-?-?-?-?-?-?-?-?- 39w 0d 82.781 kg 97/58 absent cephalic 39 135 active 1 -4 25 Reports good movement. SVE, L/TH/high. Occasional contraction and pressure. Denies leaking or Discussed labor precautions. Kick count twice a day. I discussed comfort measures for early labor and I encouraged patient to walk and move more and return in a week OB check. We also discussed diet decreasing sugary foods Discussed labor precautions. Kick count twice a day. I discussed comfort measures for early labor and I encouraged patient to walk and move more and return in a week OB check. We also discussed diet decreasing sugary foods. IOL 05/12/25 05/11/25 -?-?-?-?-?-?-?-?-?-?-?-?- 40w 2d 81.873 kg 115/78 absent cephalic 40 135 active 1 -4 25 Reports good movement. Occasional contraction. Denies leaking bleeding. NST BPP today. Discussed labor precautions. Kick count twice a day. Schedule induction of labor for May 13, 2025. Return in a week OB check if patient d oes not get improved labor DIOR Calculator Estimated Delivery Date Method Current WG Current Estimate 05/09/25 Ultrasound #1 46w 1d Other Estimates 04/17/25 LMP (Uncertain) 49w 2d Notes Visit Date: 04/20/25 Last Updated by: Mitzy Barahona CNM 04/19: GBS- Visit Date: 03/03/25 Last Updated by: Mitzy Barahona CNM 20 yo . EDC based on first sono 01/28/25: IUP: 25w4. CEDC: 05/09/25. O+,abs-, RPR:NR, HIV-,HC-,HBSAG-,GC/CT-, NIPT and carrier screen-, [place]-, 1 hr gtt: wnl HPI Interval History: 20-year-old 1 para 1 for 8-week visit. Patient had a primary section for failed induction. She was induced at 40 weeks 2 days with Cytotec. She had a baby boy weighing 7 pounds 4 ounces and she is bottlefeeding. Patient has good support at home. She would like information on control. She is not sexually active. The father of the baby is out of town right now. 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 Lungs clear no wheezes. Abdomen is soft nontend er. Uterus well involuted. Perineum is intact no lacerations. No swelling. Small lochia. Negative Homans' sign. 2+ DTRs. No edema no swelling. Breasts are soft. Incision intact. No signs or symptoms of infection. Well-healed. Office Procedures [facility] LOC & Office Proc's Nursing/Assessment Patient Status: Established Patient OB Clinic Nursing Assessment: Medication Reconciliation, Update PMH in EMR and Vital Signs OB Clinic Coordination of Care: Consent,records obtained, informed consent, Education Simp Pt/Fam, Lab and Imaging orders and Staff clarify orders Special Needs: Heart tones Established Patient Charge Established Patient Point Assignment: 105 Established Patient Point Charge: EP Level 3 (80-115) Assessment & Plan Diagnosis / Problem List (1) Routine Follow-Up: (2) 6 weeks follow-up: Status: Acute Plan Refill Colace 100 p.o. twice daily x 7 days. Ibuprofen 800 p.o. every 8 hours as needed for pain x 60. Discussed diet and exercise. Discussed wound care. We reviewed control options. Patient elected Mirena IUD. I discussed pros and cons and insertion. And patient will call for appointment when her partner is coming back. Care Reviewed delivery summary and any complications: Yes Uterus involuted to: 3 below Perineal / incision healing noted: No Screened for depression: Yes Depression counseling provided: No Discussed family planning & contraception: Yes Contraception planned: mirena Counseling on safe resumption of sexual activity: Yes Counseling on gradual excercise: Yes Discussed and concerns (describe), provided support: No Referred to denial resolution specialist: No Counseled on good nutrition, hydration, and self care: No Reviewed vaccine status: Yes care discussed; questions answered: feeding Follow up: routine/prn Additional counseling & anticipatory guidance provided: No sex. Ibuprofen 800 x 1 before she comes for her procedure. Increase fiber. Increase fluids. Return when ready for Mirena insert (FP) Tobacco Smoking Status: Never smoker
[2025-06-21 08:33] VITALS: BP 128/83; PULSE 94; RESP 18; TEMP 36.7; O2SAT 98
== END 2025-06-21 09:13 | disposition home or self-care (01) ==
LOC: HODSOBC 08:18
PROVIDERS: Supervising Provider Advanced Practice Midwife; Visit Provider Advanced Practice Midwife
DX: Z39.2 Encounter for routine postpartum follow-up (principal)
CPT/HCPCS: 99213; G0463